=== PATIENT | female | born 1955 | race Caucasian/White ===

== ENCOUNTER → 2016-11-29 | Outpatient (CLI) | payer BC ==
[~2016-11-29] MED LIST: BACTRIM DS 8001 TA1 PO; DARVOCET N 1001 TAB PO; DAYPRO600 M1 PO; FLEXERIL10 MG PO; LISINOPRIL20 MG PO; MOTRIN800 MG PO; NKHM; NUCYNTA75 MG PO; PERCOCET 325 MG1 TA7 PO; ZOCOR20 MG PO
[2016-11-29 08:19] LABS: CHOLESTEROL 214 mg/dL (<200); HDL CHOLESTEROL 53 mg/dl (40-60); LDL CHOLESTEROL 132 mg/dL (9-159); TRIGLYCERIDES 146 mg/dl (<150); VLDL CHOLESTEROL 29 mg/dL (6-40)
== END | disposition home or self-care (01) ==
LOC: LAB 07:26
PROVIDERS: Family Medicine
DX: E53.8 Deficiency of other specified B group vitamins (principal); E78.2 Mixed hyperlipidemia; R73.03 Prediabetes

== ENCOUNTER → 2017-07-18 | Outpatient (CLI) | payer OTHER ==
[2017-07-18 08:21] LABS: BASO % 0.5 % (0.0-1.0); EOS # 0.2 10*3/uL (0.0-0.4); EOS % 2.7 % (1.0-4.0); HEMOGLOBIN 14.9 g/dl (12.0-16.0); LYMPH # 2.4 10*3/uL (1.3-4.4); LYMPH % 28.4 % (27.0-41.0); MEAN CORPUSCULAR HGB 29.8 pg (27.0-31.0); MEAN CORPUSCULAR HGB CONC 33.9 g/dl (33.0-37.0); MEAN PLATELET VOLUME 9.7 fl (9.6-12.3); MONO # 0.6 10*3/uL (0.1-1.0); MONO % 7.4 % (3.0-9.0); NEUT # 5.1 10*3/uL (2.3-7.9); NEUT % 60.8 % (47.0-73.0); PLATELET COUNT AUTOMATED 383 10*3/uL (130-400); RED CELL DISTRI WIDTH 12.8 % (0-14.5); WHITE BLOOD COUNT 8.5 10*3/uL (4.8-10.8)
[2017-07-18 08:49] LABS: ALBUMIN 4.6 gm/dl (3.1-4.5); BUN 18 mg/dl (7-24); CHLORIDE 103 mmol/L (98-107); POTASSIUM 4.5 mmol/L (3.5-5.1); SODIUM 140 mmol/L (136-145)
[2017-07-18 08:52] LABS: ALKALINE PHOSPHATASE 109 U/L (45-117); CHOLESTEROL 203 mg/dL (<200); CREATININE 0.95 mg/dL (0.55-1.02); HDL CHOLESTEROL 51 mg/dl (40-60); LDL CHOLESTEROL 124 mg/dL (9-159); SGOT/AST 18 IU/L (3-35); SGPT/ALT 21 U/L (12-78); TOTAL PROTEIN 7.6 gm/dL (6.4-8.2); TRIGLYCERIDES 140 mg/dl (<150); VLDL CHOLESTEROL 28 mg/dL (6-40)
[2017-07-18 10:45] LABS: VITAMIN D, 25-HYDROXY 22.7 ng/mL (30-100)
== END | disposition home or self-care (01) ==
LOC: LAB 07:23 → MAMMO 08:00
PROVIDERS: Family Medicine
DX: Z12.31 Encounter for screening mammogram for malignant neoplasm of breast (principal); I10 Essential (primary) hypertension; E78.2 Mixed hyperlipidemia; E55.9 Vitamin D deficiency, unspecified; R73.03 Prediabetes; E53.8 Deficiency of other specified B group vitamins

== ENCOUNTER → 2017-07-25 | Outpatient (CLI) | payer OTHER | END | disposition home or self-care (01) | LOC: MAMMO 09:00 | DX: N60.01 Solitary cyst of right breast (principal); R92.8 Other abnormal and inconclusive findings on diagnostic imaging of breast ==

== ENCOUNTER 2018-04-09 14:30 | Inpatient (IN) | payer OTHER ==
[~2018-04-09] VITALS: Ht 168 cm; Wt 67.1 kg
[2018-04-09] VITALS (7 sets, daily range): BP systolic 150–203; BP diastolic 84–123
--- NOTE | ~2018-04-09 | CON ---
[place], [place] REPORT OF CONSULTATION NAME: ELIZABETH WEBBER [facility] #: [id number] UNIT #: [id number] ROOM: [facility] DOCTOR: TYRESE REED MD BIRTHDATE: [birth year] DOS: 04/09/2018 CARDIOLOGY CONSULTATION The patient was seen. REASON FOR CONSULTATION: Chest pain, elevated troponin. HISTORY OF PRESENT ILLNESS: The patient is a 62-year-old woman who has had a history of chest pain in the past, but has never been documented as having coronary artery disease. She was evaluated in 01/2015 and ruled out for myocardial infarction. A stress myocardial perfusion study on 02/15/2015 showed an ejection fraction of 62% with normal perfusion. The patient was in her normal state of health until 4 days ago. She began having episodes of burning substernal chest pain with exertion that was relieved by rest. These episodes would last 10-15 minutes. 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 It was associated with diaphoresis and slight dyspnea. She also had a squeezing sensation in her chest. She came to the Emergency Room by private vehicle and was still having chest pain on admission. An electrocardiogram obtained immediately showed sinus tachycardia with a rate of 106 with 1.[address] segment depression in the inferior and lateral leads. She was given metoprolol and aspirin. Her rate decreased to [address] changes improved dramatically. Her initial troponin was elevated at 0.958 and the subsequent troponin level was 1.240. A diagnosis of non-ST elevation myocardial infarction was made and she was admitted to the Intensive Care Unit. She is currently feeling well. She denies dyspnea, orthopnea, PND or any further chest pain. PAST MEDICAL AND SURGICAL HISTORY: Includes the followin. Hyperlipidemia. 2. Hypertension. 3. Status post carpal tunnel repair. 4. Left elbow repair. 5. Chest pain prompting stress test 02/15/2015, ejection fraction 62%, no ischemia, low risk study. MEDICATIONS PRIOR TO ADMISSION: Hydrochlorothiazide 25 mg once a day and simvastatin 20 mg at bedtime. ALLERGIES: THE PATIENT LISTS ALLERGIES TO PENICILLINS. She specifically denies any allergies to IVP dye. FAMILY HISTORY: The patient's father has hypertension and had a myocardial infarction in his 80s. Her mother of cancer. REVIEW OF SYSTEMS: The patient denies diplopia or loss of vision. She denies lightheadedness or syncope. She denies fevers, chills, sweats or recent weight change. Denies any focal weakness. She has not had any nausea, but she has had [place], [place] REPORT OF CONSULTATION NAME: ELIZABETH WEBBER UNIT #: [id number] ROOM: [facility] DOCTOR: TYRESE REED MD BIRTHDATE: [birth year] burning substernal chest pain. She denies vomiting. She denies hemoptysis or hematemesis. She denies palpitations or syncope. She denies orthopnea or PND. She denies any peripheral edema. She denies heat or cold intolerance and denies polyuria or polydipsia. Remainder of the review of systems is negative except as noted above. SOCIAL HISTORY: The patient is . She does smoke one-half pack of cigarettes a day, but is "trying to quit." She is not consuming excessive amounts of alcohol. PHYSICAL EXAMINATION: GENERAL: The patient is a well-nourished white female who is awake, alert and oriented. VITAL SIGNS: Pulse is 79 and regular, blood pressure is 170/84. She is afebrile. She weighs 67.1 kg and has a body mass index of 23.8. HEENT: Normocephalic and atraumatic. Extraocular muscles are intact. Sclerae are clear. Pupils are equal, round and react to light. The oral mucosa is moist. Tongue is midline. NECK: Supple. She has no jugular distention. Carotids are full. There are no bruits. She has no neck or supraclavicular masses, no thyromegaly. LUNGS: Respirations are unlabored. Her chest is clear to auscultation and percussion. She has no presacral edema or chest wall tenderness. HEART: Has a regular rhythm. She has a fourth heart sound, but no third heart sound or murmur. The PMI is not displaced. There is no precordial heave, lift or thrill. ABDOMEN: Soft and normally active without masses, organomegaly or bruits. EXTREMITIES: Showed no clubbing, cyanosis or edema. Peripheral pulses are diminished, but palpable in the feet. DIAGNOSTIC STUDIES: I reviewed her electrocardiograms. The initial cardiogram did show 1.[address] segment depression in the inferior and lateral leads, which improved on repeat. LABORATORY DATA: Hemoglobin is 13.4, hematocrit 39.3. There are 7600 white cells, 318,000 platelets. PT is 10.2 with an INR of 0.9. Sodium is 140, potassium 3.6, chloride 106, CO2 is 26, BUN 21, creatinine 0.89. Peak troponin thus far is 1.240. IMPRESSION: 1. Non-ST segment elevation myocardial infarction. The patient's troponin level continues to rise at this time indicating that the event was recent. 2. Hypertension. 3. Hyperlipidemia. 4. Cigarette abuse. PLAN: Given the patient's age and multiple episodes of chest pain in the last 4 days, I think that an aggressive approach with catheterization at this time is appropriate. I have discussed catheterization including the risk of heart attack, stroke, , bleeding, bruising, dye reaction, irregular heartbeats, infections, etc. with the patient and her family was in attendance. She agrees [place], [place] REPORT OF CONSULTATION NAME: ELIZABETH WEBBER UNIT #: [id number] ROOM: [facility] DOCTOR: TYRESE REED MD BIRTHDATE: [birth year] to proceed. According to the society for angiography and interventions, her indication is 3 with a score of 8. We will arrange for transfer to [facility] within the next 24 hours for catheterization and potential revascularization. I thank the hospitalist physicians for asking our advice regarding her care. TYRESE REED MD CM:CONSTR:REPORT OF CONSULTATION 10 04/10/18 1746 interface
--- NOTE | ~2018-04-09 | EKG ---
[place], [place] ELECTROCARDIOGRAM REPORT NAME: ELIZABETH WEBBER UNIT #: [id number] ROOM: [facility] DOCTOR: NONI DRAFT REPORT BIRTHDATE: [birth year] [facility] Test Date: 2018-04-09 Test Time: 14:35:07 Pat Name: ELIZABETH WEBBER Department: Room: [facility] Gender: F [employer] Supervisor: Amanda Fong : 1955 Requested By: DARRYL GONZALEZ Order Number: [id number] Reading MD: Alexis Quispe MD Measurements Intervals [place] Rate: 106 P: 74 NH: 156 QRS: 41 QRSD: 92 T: 24 QT: 334 QTc: 445 Interpretive Statements Sinus tachycardia ST depression, anterolateral leads, consider acute ischemia No previous ECG available for comparison Electronically Signed On 04-09-2018 18:47:37 PDT by Alexis Quispe MD CM:EKGRPT:ELECTROCARDIOGRAM REPORT [id number] DARRYL CHENEY DRAFT REPORT DARRYL GONZALEZ M.D.
--- NOTE | ~2018-04-09 | EKG ---
[place], [place] ELECTROCARDIOGRAM REPORT NAME: ELIZABETH WEBBER UNIT #: [id number] ROOM: [facility] DOCTOR: NONI DRAFT REPORT BIRTHDATE: [birth year] [facility] Test Date: 2018-04-09 Test Time: 17:58:29 Pat Name: ELIZABETH WEBBER Department: Room: [facility] Gender: F [employer] Chair: Amanda Fong : 1955 Requested By: DARRYL GONZALEZ Order Number: [id number] Reading MD: Alexis Quispe MD Measurements Intervals [place] Rate: 81 P: 33 AR: 153 QRS: 28 QRSD: 85 T: 19 QT: 384 QTc: 446 Interpretive Statements Sinus rhythm Baseline wander in lead(s) V6 Compared to previous tracing this date Heart rate is slower Anterolateral ST depression is no longer present Electronically Signed On 04-09-2018 18:53:46 PDT by Alexis Quispe MD CM:EKGRPT:ELECTROCARDIOGRAM REPORT 1853 DARRYL CHENEY DRAFT REPORT DARRYL GONZALEZ M.D.
--- NOTE | ~2018-04-09 | EKG ---
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 Electronically Signed On 04-09-2018 18:55:08 PDT by Alexis Quipse MD CM:EKGRPT:ELECTROCARDIOGRAM REPORT [id number] DARRYL CHENEY DRAFT REPORT DARRYL GONZALEZ M.D.
[2018-04-09 15:28] LABS: BASO # 0.1 10*3/uL (0.0-0.1); BASO % 0.9 % (0.0-1.0); EOS # 0.3 10*3/uL (0.0-0.4); EOS % 3.4 % (1.0-4.0); HEMATOCRIT 39.3 % (37.0-47.0); HEMOGLOBIN 13.4 g/dl (12.0-16.0); LYMPH # 2.3 10*3/uL (1.3-4.4); MEAN CELL VOLUME 88.9 fl (81.0-99.0); MEAN CORPUSCULAR HGB 30.3 pg (27.0-31.0); MEAN CORPUSCULAR HGB CONC 34.1 g/dl (33.0-37.0); MEAN PLATELET VOLUME 9.4 fl (9.6-12.3); MONO # 0.6 10*3/uL (0.1-1.0); MONO % 8.5 % (3.0-9.0); NEUT # 4.2 10*3/uL (2.3-7.9); NEUT % 55.9 % (47.0-73.0); PLATELET COUNT AUTOMATED 318 10*3/uL (130-400); RED BLOOD COUNT 4.42 10*6/uL (4.10-5.10); RED CELL DISTRI WIDTH 12.8 % (0-14.5); WHITE BLOOD COUNT 7.6 10*3/uL (4.8-10.8)
[2018-04-09 15:36] LABS: ACT PARTIAL THROMBO TIME 26.1 SECONDS (20.8-31.5); INTERNATIONAL NORM RATIO 0.9 (2.0-3.5)
[2018-04-09 15:46] LABS: ALKALINE PHOSPHATASE 106 U/L (45-117); BUN 21 mg/dl (7-24); CHLORIDE 106 mmol/L (98-107); CREATININE 0.89 mg/dL (0.55-1.02); POTASSIUM 3.6 mmol/L (3.5-5.1); SGOT/AST 25 IU/L (3-35); SGPT/ALT 25 U/L (12-78); SODIUM 140 mmol/L (136-145); TOTAL PROTEIN 7.2 gm/dL (6.4-8.2)
[2018-04-09 15:51] LABS: TROPONIN I 0.958 ng/ml (<0.045)
[2018-04-09] MEDS ORDERED: HYDR25T PO (17:19)
[2018-04-10] VITALS: BP 140/82
[2018-04-10 04:00] VITALS: BP 138/77
[2018-04-10 05:55] LABS: ALBUMIN 3.5 gm/dl (3.1-4.5); ALKALINE PHOSPHATASE 97 U/L (45-117); BUN 16 mg/dl (7-24); CHLORIDE 108 mmol/L (98-107); CHOLESTEROL 183 mg/dL (<200); CREATININE 0.88 mg/dL (0.55-1.02); FREE T4 1.08 ng/dl (0.76-1.46); HDL CHOLESTEROL 42 mg/dl (40-60); LDL CHOLESTEROL 102 mg/dL (9-159); PHOSPHOROUS 3.7 mg/dL (2.5-4.9); POTASSIUM 3.9 mmol/L (3.5-5.1); SGOT/AST 25 IU/L (3-35); SGPT/ALT 25 U/L (12-78); SODIUM 143 mmol/L (136-145); TRIGLYCERIDES 197 mg/dl (<150); VLDL CHOLESTEROL 39 mg/dL (6-40)
[2018-04-10 06:02] LABS: BASO # 0.1 10*3/uL (0.0-0.1); BASO % 0.9 % (0.0-1.0); EOS # 0.3 10*3/uL (0.0-0.4); EOS % 4.2 % (1.0-4.0); HEMATOCRIT 41.5 % (37.0-47.0); HEMOGLOBIN 13.8 g/dl (12.0-16.0); LYMPH # 2.4 10*3/uL (1.3-4.4); LYMPH % 37.5 % (27.0-41.0); MEAN CELL VOLUME 90.4 fl (81.0-99.0); MEAN CORPUSCULAR HGB 30.1 pg (27.0-31.0); MEAN CORPUSCULAR HGB CONC 33.3 g/dl (33.0-37.0); MEAN PLATELET VOLUME 9.7 fl (9.6-12.3); MONO # 0.6 10*3/uL (0.1-1.0); MONO % 9.9 % (3.0-9.0); NEUT % 47.2 % (47.0-73.0); PLATELET COUNT AUTOMATED 338 10*3/uL (130-400); RED BLOOD COUNT 4.59 10*6/uL (4.10-5.10); RED CELL DISTRI WIDTH 12.8 % (0-14.5); WHITE BLOOD COUNT 6.5 10*3/uL (4.8-10.8)
[2018-04-10 06:17] LABS: ACT PARTIAL THROMBO TIME 27.7 SECONDS (20.8-31.5)
== END 2018-04-10 07:00 | disposition other institution (70) | DRG 282 ==
LOC: ED 14:30 → EDHOLD 16:22 → ICCU 16:22
PROVIDERS: Emergency Medicine; Internal Medicine
DX: I21.4 Non-ST elevation (NSTEMI) myocardial infarction (principal); I10 Essential (primary) hypertension; F17.210 Nicotine dependence, cigarettes, uncomplicated; E78.5 Hyperlipidemia, unspecified; K21.9 Gastro-esophageal reflux disease without esophagitis; E83.41 Hypermagnesemia; R73.9 Hyperglycemia, unspecified; H81.02 Meniere's disease, left ear; Z88.0 Allergy status to penicillin; Z79.899 Other long term (current) drug therapy; Z82.49 Family history of ischemic heart disease and other diseases of the circulatory system; Z80.41 Family history of malignant neoplasm of ovary; Z71.6 Tobacco abuse counseling; Z91.041 Radiographic dye allergy status

== ENCOUNTER → 2018-08-13 | Outpatient (CLI) | payer OTHER ==
[~2018-08-13] MED LIST changes: +HYDR25T PO
== END | disposition home or self-care (01) ==
LOC: RAD 11:18
DX: J43.9 Emphysema, unspecified (principal); I10 Essential (primary) hypertension; I25.10 Atherosclerotic heart disease of native coronary artery without angina pectoris

== ENCOUNTER → 2018-10-17 | Outpatient (CLI) | payer OTHER | END | disposition home or self-care (01) | LOC: CARD 12:41 | DX: R06.09 Other forms of dyspnea (principal) ==

== ENCOUNTER → 2019-04-14 | Outpatient (CLI) | payer OTHER | END | disposition home or self-care (01) | LOC: RAD 10:39 | DX: R05 Cough (principal); I10 Essential (primary) hypertension; J44.9 Chronic obstructive pulmonary disease, unspecified; Z87.891 Personal history of nicotine dependence ==

== ENCOUNTER → 2019-05-07 | Outpatient (CLI) | payer OTHER ==
--- NOTE | ~2019-05-07 | PF ---
[place], [place] PULMONARY FUNCTION TEST [id number] UN[facility] #: [id number] ROOM: DOCTOR: KEY OSORIO MD,LIZ BIRTHDATE: [birth year] DOS: 05/07/2019 The test was ordered by Mack Marques. HISTORY: The patient recorded as a 63-year-old female patient with height of 66 inches, weight of 145 pounds, BMI of 23.4. Testing was done for the patient's assessment of symptoms of chronic cough. Tobacco use reported a pack of cigarettes per day for 46 years, this was discontinued one year ago. SPIROMETRY: The FVC 2.29 liters, 69% predicted value with 13% postbronchodilator improvement. FEV1 1.64 liters, 63% predicted value, moderately decreased without significant partial improvement postbronchodilator. Ratio of FEV1/FVC postbronchodilator recorded as 69%. Flow volume loop was suggestive of obstructive lung disease. LUNG VOLUME: Thoracic gas volume recorded 98%, residual volume of 122%, total lung capacity 90%. RV/TLC ratio 134%. The patient's airway resistance, passive conductance noted abnormal with improvement after bronchodilators. The patient's lung diffusion recorded 48%. FINAL IMPRESSION: Current test was noted mixed disorder of moderate chronic obstructive pulmonary disease and bronchial asthma combination. Clinical correlation would be advised. LIZ MACKEY MD CM:PFREPORT:PULMONARY FUNCTION TEST [id number] LIZ OSORIO MD
== END | disposition home or self-care (01) ==
LOC: CP 05-06 08:02
DX: I10 Essential (primary) hypertension (principal); R05 Cough

== ENCOUNTER → 2019-06-17 | Outpatient (CLI) | payer OTHER ==
[2019-06-17 10:14] LABS: BUN 16 mg/dl (7-24); CHLORIDE 111 mmol/L (98-107); CREATININE 0.98 mg/dL (0.55-1.02); POTASSIUM 4.4 mmol/L (3.5-5.1); SODIUM 143 mmol/L (136-145)
== END | disposition home or self-care (01) ==
LOC: LAB 09:22
PROVIDERS: Internal Medicine Cardiovascular Disease
DX: I25.10 Atherosclerotic heart disease of native coronary artery without angina pectoris (principal)

== ENCOUNTER 2019-08-17 13:30 | Emergency (ER) | payer OTHER ==
[~2019-08-17] VITALS: Ht 167.6 cm; Wt 68.0 kg
[2019-08-17 14:40] LABS: BASO # 0.1 10*3/uL (0.0-0.1); BASO % 1.3 % (0.0-1.0); EOS # 0.4 10*3/uL (0.0-0.4); EOS % 8.2 % (1.0-4.0); HEMATOCRIT 38.8 % (37.0-47.0); HEMOGLOBIN 12.7 g/dl (12.0-16.0); LYMPH % 19.1 % (27.0-41.0); MEAN CELL VOLUME 89.8 fl (81.0-99.0); MEAN CORPUSCULAR HGB 29.4 pg (27.0-31.0); MEAN CORPUSCULAR HGB CONC 32.7 g/dl (33.0-37.0); MEAN PLATELET VOLUME 9.4 fl (9.6-12.3); MONO # 0.6 10*3/uL (0.1-1.0); MONO % 11.7 % (3.0-9.0); NEUT # 3.2 10*3/uL (2.3-7.9); NEUT % 59.5 % (47.0-73.0); PLATELET COUNT AUTOMATED 314 10*3/uL (130-400); RED BLOOD COUNT 4.32 10*6/uL (4.10-5.10); RED CELL DISTRI WIDTH 12.6 % (0-14.5); WHITE BLOOD COUNT 5.4 10*3/uL (4.8-10.8)
[2019-08-17 14:55] LABS: ALBUMIN 3.5 gm/dl (3.1-4.5); ALKALINE PHOSPHATASE 144 U/L (45-117); BUN 23 mg/dl (7-24); CHLORIDE 106 mmol/L (98-107); CREATININE 0.97 mg/dL (0.55-1.02); LIPASE 93 U/L (73-393); POTASSIUM 3.5 mmol/L (3.5-5.1); SGOT/AST 19 IU/L (3-35); SGPT/ALT 27 U/L (12-78); SODIUM 139 mmol/L (136-145)
[2019-08-17 15:13] VITALS: BP 116/70
[2019-08-17] MEDS ORDERED: SEPTDS PO (15:27)
== END 2019-08-17 15:39 | disposition home or self-care (01) ==
LOC: ED 13:30
PROVIDERS: Nurse Practitioner Family
DX: J32.9 Chronic sinusitis, unspecified (principal); K21.9 Gastro-esophageal reflux disease without esophagitis; I10 Essential (primary) hypertension; E78.5 Hyperlipidemia, unspecified; E78.00 Pure hypercholesterolemia, unspecified; Z88.0 Allergy status to penicillin; Z79.899 Other long term (current) drug therapy

== ENCOUNTER → 2019-09-10 | Outpatient (CLI) | payer OTHER ==
[~2019-09-10] MED LIST changes: +ASPIR 8181 MG PO; +ATORVASTATIN CA80 M1 PO; +COZAAR25 M1 PO; +PRILOSEC20 M1 PO; +PROAIR HFA8.5 GM INH; +SEPTDS PO; +TOPROL XL25 MG PO
--- NOTE | 2019-09-10 10:30 | NUR ---
INFORMED CONSENT OBTAINED FOR EXERCISE CARDIOLITE STRESS TEST WITH DR. CARTY. RESTING EKG NSR WITH A SUPINE HR OF 63 WITH BP OF 162/48 AND HR OF 65 WITH BP OF 138/80 IN STANDING POSITION. PT COMPLETED 7:00 OF A ERASMO PROTOCOL WITH COMPLETION OF 1:00 OF STAGE III AT 3.4 MPH AND 14% GRADE. REACHED A PEAK HR OF 150 WHICH IS 96% OF PREDICTED MAX WITH A PEAK BP OF 170/80. HAD NO CHEST PAIN OR ANY EKG CHANGES. TEST TERMINATED BECAUSE OF FATIGUE. HAS A GOOD EXERCISE TOLERANCE. LAST RECOVERY HR OF 91 WITH BP OF 128/84. AWAITING SCANNING IN STABLE CONDITION.
== END | disposition home or self-care (01) ==
LOC: CARD 00:14
DX: R73.03 Prediabetes (principal); R07.9 Chest pain, unspecified

== ENCOUNTER 2019-09-25 07:49 | Inpatient (IN) | payer OTHER ==
[~2019-09-25] VITALS: Ht 167.6 cm; Wt 69.9 kg
[2019-09-25 07:57] VITALS: BP 122/71
[2019-09-25 08:44] VITALS: BP 136/78
[2019-09-25 08:44] LABS: BASO # 0.1 10*3/uL (0.0-0.1); BASO % 1.2 % (0.0-1.0); EOS # 0.3 10*3/uL (0.0-0.4); EOS % 3.3 % (1.0-4.0); HEMOGLOBIN 13.9 g/dl (12.0-16.0); LYMPH # 2.1 10*3/uL (1.3-4.4); LYMPH % 28.1 % (27.0-41.0); MEAN CELL VOLUME 89.8 fl (81.0-99.0); MEAN CORPUSCULAR HGB CONC 32.3 g/dl (33.0-37.0); MEAN PLATELET VOLUME 9.6 fl (9.6-12.3); MONO # 0.6 10*3/uL (0.1-1.0); MONO % 8.3 % (3.0-9.0); NEUT # 4.5 10*3/uL (2.3-7.9); NEUT % 58.8 % (47.0-73.0); PLATELET COUNT AUTOMATED 366 10*3/uL (130-400); RED BLOOD COUNT 4.79 10*6/uL (4.10-5.10); RED CELL DISTRI WIDTH 12.9 % (0-14.5); WHITE BLOOD COUNT 7.6 10*3/uL (4.8-10.8)
[2019-09-25 08:54] LABS: ACT PARTIAL THROMBO TIME 25.5 SECONDS (20.0-32.1)
[2019-09-25 08:59] LABS: ALBUMIN 3.8 gm/dl (3.1-4.5); ALKALINE PHOSPHATASE 154 U/L (45-117); BUN 20 mg/dl (7-24); CHLORIDE 107 mmol/L (98-107); LIPASE 93 U/L (73-393); POTASSIUM 4.3 mmol/L (3.5-5.1); SGOT/AST 19 IU/L (3-35); SGPT/ALT 32 U/L (12-78); SODIUM 140 mmol/L (136-145); TOTAL PROTEIN 7.8 gm/dL (6.4-8.2); TROPONIN I 0.015 ng/ml (<0.045)
[2019-09-25 10:52] VITALS: BP 170/84
[2019-09-25 12:00] VITALS: BP 148/88
[2019-09-25 16:00] VITALS: BP 151/79
[2019-09-25 20:00] VITALS: BP 141/76
[2019-09-26] VITALS: BP 126/73
[2019-09-26 06:29] LABS: BASO # 0.1 10*3/uL (0.0-0.1); BASO % 1.5 % (0.0-1.0); EOS # 0.2 10*3/uL (0.0-0.4); EOS % 2.6 % (1.0-4.0); HEMATOCRIT 38.8 % (37.0-47.0); HEMOGLOBIN 12.6 g/dl (12.0-16.0); LYMPH # 1.9 10*3/uL (1.3-4.4); LYMPH % 30.2 % (27.0-41.0); MEAN CELL VOLUME 88.6 fl (81.0-99.0); MEAN CORPUSCULAR HGB 28.8 pg (27.0-31.0); MEAN CORPUSCULAR HGB CONC 32.5 g/dl (33.0-37.0); MEAN PLATELET VOLUME 9.5 fl (9.6-12.3); MONO # 0.5 10*3/uL (0.1-1.0); MONO % 7.7 % (3.0-9.0); NEUT # 3.6 10*3/uL (2.3-7.9); NEUT % 57.8 % (47.0-73.0); PLATELET COUNT AUTOMATED 353 10*3/uL (130-400); RED BLOOD COUNT 4.38 10*6/uL (4.10-5.10); RED CELL DISTRI WIDTH 13.2 % (0-14.5); WHITE BLOOD COUNT 6.1 10*3/uL (4.8-10.8)
[2019-09-26 07:03] LABS: BUN 17 mg/dl (7-24); CHLORIDE 107 mmol/L (98-107); CHOLESTEROL 138 mg/dL (<200); CREATININE 0.93 mg/dL (0.55-1.02); FREE T4 1.25 ng/dl (0.76-1.46); HDL CHOLESTEROL 47 mg/dl (40-60); LDL CHOLESTEROL 74 mg/dL (9-159); PHOSPHOROUS 4.2 mg/dL (2.5-4.9); POTASSIUM 4.1 mmol/L (3.5-5.1); SODIUM 140 mmol/L (136-145); TRIGLYCERIDES 85 mg/dl (<150); VLDL CHOLESTEROL 17 mg/dL (6-40)
[2019-09-26 07:06] LABS: ACT PARTIAL THROMBO TIME 26.1 SECONDS (20.0-32.1)
[2019-09-26 07:57] LABS: VITAMIN D, 25-HYDROXY 23.7 ng/mL (30-100)
[2019-09-26 08:00] VITALS: BP 116/74
[2019-09-26 12:00] VITALS: BP 100/56
[2019-09-26] MEDS ORDERED: LOSARTAN POTASS50 M1 PO (14:34)
== END 2019-09-26 15:34 | disposition home or self-care (01) | DRG 69 ==
LOC: ED 07:49 → EDHOLD 10:16 → 4E 10:16
PROVIDERS: Emergency Medicine; Internal Medicine; ADMIT Family Medicine
DX: G45.9 Transient cerebral ischemic attack, unspecified (principal); R47.01 Aphasia; N18.3 Chronic kidney disease, stage 3 (moderate); E83.41 Hypermagnesemia; R74.8 Abnormal levels of other serum enzymes; K21.9 Gastro-esophageal reflux disease without esophagitis; E78.5 Hyperlipidemia, unspecified; J44.9 Chronic obstructive pulmonary disease, unspecified; R79.82 Elevated C-reactive protein (CRP); I12.9 Hypertensive chronic kidney disease with stage 1 through stage 4 chronic kidney disease, or unspecified chronic kidney disease; I25.2 Old myocardial infarction; Z87.891 Personal history of nicotine dependence; Z88.0 Allergy status to penicillin; Z79.82 Long term (current) use of aspirin; Z79.899 Other long term (current) drug therapy

== ENCOUNTER → 2019-10-01 | Outpatient (CLI) | payer OTHER ==
[~2019-10-01] MED LIST changes: +LOSARTAN POTASS50 M1 PO
== END | disposition home or self-care (01) ==
LOC: MRI 08:42
DX: G45.9 Transient cerebral ischemic attack, unspecified (principal); I63.9 Cerebral infarction, unspecified

== ENCOUNTER → 2020-05-10 | Outpatient (CLI) | payer BC | END | disposition home or self-care (01) | LOC: RAD 16:33 | PROVIDERS: ATTEND Internal Medicine Critical Care Medicine | DX: J44.9 Chronic obstructive pulmonary disease, unspecified (principal); R05 Cough; Z95.5 Presence of coronary angioplasty implant and graft ==

== ENCOUNTER → 2020-05-17 | Outpatient (CLI) | payer BC | END | disposition home or self-care (01) | LOC: COVID19 15:19 | PROVIDERS: ATTEND Physician Assistant | DX: Z20.828 Contact with and (suspected) exposure to other viral communicable diseases (principal) ==

== ENCOUNTER → 2020-09-09 | Outpatient (CLI) | payer BC ==
[2020-09-09 15:29] LABS: BASO # 0.1 10*3/uL (0.0-0.1); BASO % 1.3 % (0.0-1.0); EOS # 0.5 10*3/uL (0.0-0.4); EOS % 7.6 % (1.0-4.0); HEMATOCRIT 40.6 % (37.0-47.0); LYMPH # 1.8 10*3/uL (1.3-4.4); LYMPH % 28.6 % (27.0-41.0); MEAN CORPUSCULAR HGB 28.1 pg (27.0-31.0); MEAN CORPUSCULAR HGB CONC 31.5 g/dl (33.0-37.0); MONO # 0.8 10*3/uL (0.1-1.0); MONO % 12.5 % (3.0-9.0); NEUT # 3.1 10*3/uL (2.3-7.9); NEUT % 49.4 % (47.0-73.0); PLATELET COUNT AUTOMATED 477 10*3/uL (130-400); RED BLOOD COUNT 4.56 10*6/uL (4.10-5.10); RED CELL DISTRI WIDTH 13.2 % (0-14.5); WHITE BLOOD COUNT 6.2 10*3/uL (4.8-10.8)
[2020-09-09 16:00] LABS: ALBUMIN 3.7 gm/dl (3.1-4.5); ALKALINE PHOSPHATASE 127 U/L (45-117); BUN 16 mg/dl (7-24); CHLORIDE 106 mmol/L (98-107); CREATININE 0.95 mg/dL (0.55-1.02); POTASSIUM 4.3 mmol/L (3.5-5.1); SGOT/AST 23 IU/L (3-35); SGPT/ALT 31 U/L (12-78); SODIUM 139 mmol/L (136-145); TOTAL PROTEIN 7.9 gm/dL (6.4-8.2)
== END | disposition home or self-care (01) ==
LOC: LAB 15:03
PROVIDERS: ATTEND Internal Medicine Cardiovascular Disease
DX: I72.9 Aneurysm of unspecified site (principal)

== ENCOUNTER → 2021-11-24 | Outpatient (CLI) | payer OTHER | END | disposition home or self-care (01) | LOC: RESCLI 01:42 | PROVIDERS: ATTEND Internal Medicine | DX: I10 Essential (primary) hypertension (principal); F41.9 Anxiety disorder, unspecified; E11.69 Type 2 diabetes mellitus with other specified complication; E78.5 Hyperlipidemia, unspecified; E55.9 Vitamin D deficiency, unspecified; K21.9 Gastro-esophageal reflux disease without esophagitis; J44.9 Chronic obstructive pulmonary disease, unspecified; Z86.73 Personal history of transient ischemic attack (TIA), and cerebral infarction without residual deficits; G47.00 Insomnia, unspecified; Z79.899 Other long term (current) drug therapy; Z79.82 Long term (current) use of aspirin; Z88.0 Allergy status to penicillin; Z88.8 Allergy status to other drugs, medicaments and biological substances ==

== ENCOUNTER → 2022-05-13 | Outpatient (CLI) | payer OTHER ==
[2022-05-13 09:27] LABS: BUN 26 mg/dl (7-24); CHLORIDE 108 mmol/L (98-107); CREATININE 0.87 mg/dL (0.55-1.02); POTASSIUM 4.2 mmol/L (3.5-5.1); SODIUM 142 mmol/L (136-145)
== END | disposition home or self-care (01) ==
LOC: LAB 08:07
PROVIDERS: ATTEND Surgery Vascular Surgery
DX: I65.23 Occlusion and stenosis of bilateral carotid arteries (principal)

== ENCOUNTER → 2022-10-19 | Outpatient (CLI) | payer OTHER ==
[~2022-10-19] MED LIST changes: +ANORO ELLIPTA1 EACH PO; +ATORVASTATIN CA40 M1 PO; -ATORVASTATIN CA80 M1 PO; +ELIQUIS5 M1 PO; +FLOVENT HFA10.6 GM PO; +GLUMETZA500 MG PO; +IMDUR SA30 MG PO; +MAGNESIUM400 M1 PO; +VENLAFAXINE75 M1 PO
== END | disposition home or self-care (01) ==
LOC: CARD 00:19
PROVIDERS: ATTEND Internal Medicine Cardiovascular Disease
DX: I25.750 Atherosclerosis of native coronary artery of transplanted heart with unstable angina (principal); Z95.1 Presence of aortocoronary bypass graft

== ENCOUNTER → 2023-01-23 | Outpatient (CLI) | payer OTHER | END | disposition home or self-care (01) | LOC: RESCLI 00:42 | PROVIDERS: ATTEND Student in an Organized Health Care Education/Training Program | DX: E11.69 Type 2 diabetes mellitus with other specified complication (principal); E56.9 Vitamin deficiency, unspecified; I10 Essential (primary) hypertension; E55.9 Vitamin D deficiency, unspecified; G47.00 Insomnia, unspecified; E78.5 Hyperlipidemia, unspecified; K21.9 Gastro-esophageal reflux disease without esophagitis; J44.9 Chronic obstructive pulmonary disease, unspecified; F41.9 Anxiety disorder, unspecified; Z86.73 Personal history of transient ischemic attack (TIA), and cerebral infarction without residual deficits; Z98.890 Other specified postprocedural states; Z88.0 Allergy status to penicillin; Z82.49 Family history of ischemic heart disease and other diseases of the circulatory system; Z79.899 Other long term (current) drug therapy ==

== ENCOUNTER → 2023-02-19 | Outpatient (CLI) | payer OTHER | END | disposition home or self-care (01) | LOC: CARD 01:16 | PROVIDERS: ATTEND Internal Medicine Cardiovascular Disease | DX: I34.81 Nonrheumatic mitral (valve) annulus calcification (principal); R06.09 Other forms of dyspnea ==

== ENCOUNTER → 2023-04-12 | Outpatient (CLI) | payer OTHER ==
[2023-04-12 08:21] LABS: BUN 15 mg/dl (9-23); CHLORIDE 108 mmol/L (98-107); POTASSIUM 4.7 mmol/L (3.4-5.1)
[2023-04-12 08:23] LABS: CHOLESTEROL 119 mg/dL (<200); LDL CHOLESTEROL 46 mg/dL (9-159); TRIGLYCERIDES 119 mg/dl (<150)
== END | disposition home or self-care (01) ==
LOC: LAB 07:36
PROVIDERS: Nurse Practitioner Family; ATTEND Surgery Vascular Surgery
DX: I71.43 Infrarenal abdominal aortic aneurysm, without rupture (principal); E78.5 Hyperlipidemia, unspecified; Z79.899 Other long term (current) drug therapy

== ENCOUNTER 2023-07-25 14:03 | Emergency (ER) | payer OTHER ==
[~2023-07-25] VITALS: Ht 162.5 cm; Wt 72.6 kg
[2023-07-25 14:16] VITALS: BP 110/88
[2023-07-25 14:35] LABS: BASO # 0.1 10*3/uL (0.0-0.1); BASO % 1.4 % (0.0-1.0); EOS # 0.4 10*3/uL (0.0-0.4); EOS % 6.3 % (1.0-4.0); HEMATOCRIT 38.9 % (37.0-47.0); LYMPH # 1.9 10*3/uL (1.3-4.4); LYMPH % 32.6 % (27.0-41.0); MEAN CELL VOLUME 88.4 fl (81.0-99.0); MEAN CORPUSCULAR HGB CONC 31.6 g/dl (33.0-37.0); MEAN PLATELET VOLUME 9.2 fl (9.6-12.3); MONO # 0.5 10*3/uL (0.1-1.0); MONO % 9.5 % (3.0-9.0); NEUT # 2.8 10*3/uL (2.3-7.9); NEUT % 49.8 % (47.0-73.0); PLATELET COUNT AUTOMATED 300 10*3/uL (130-400); RED CELL DISTRI WIDTH 12.3 % (0-14.5); WHITE BLOOD COUNT 5.7 10*3/uL (4.8-10.8)
[2023-07-25 14:52] LABS: ACT PARTIAL THROMBO TIME 31.5 SECONDS (20.0-32.1)
[2023-07-25 15:00] LABS: ALKALINE PHOSPHATASE 103 U/L (46-116); BUN 19 mg/dl (9-23); CHLORIDE 107 mmol/L (98-107); POTASSIUM 4.3 mmol/L (3.4-5.1); SGPT/ALT 22 U/L (5-49)
== END 2023-07-25 18:42 | disposition home or self-care (01) ==
LOC: ED 14:03
PROVIDERS: Nurse Practitioner Family
DX: I71.40 Abdominal aortic aneurysm, without rupture, unspecified (principal); K21.9 Gastro-esophageal reflux disease without esophagitis; J44.9 Chronic obstructive pulmonary disease, unspecified; E78.5 Hyperlipidemia, unspecified; I12.9 Hypertensive chronic kidney disease with stage 1 through stage 4 chronic kidney disease, or unspecified chronic kidney disease; N18.30 Chronic kidney disease, stage 3 unspecified; Z86.73 Personal history of transient ischemic attack (TIA), and cerebral infarction without residual deficits; E83.41 Hypermagnesemia; I10 Essential (primary) hypertension; I25.2 Old myocardial infarction; E78.00 Pure hypercholesterolemia, unspecified; M10.9 Gout, unspecified; Z88.0 Allergy status to penicillin; Z98.890 Other specified postprocedural states; Z87.891 Personal history of nicotine dependence

== ENCOUNTER → 2024-03-13 | Outpatient (CLI) | payer OTHER | END | disposition home or self-care (01) | LOC: RESCLI 03:38 | PROVIDERS: ATTEND Student in an Organized Health Care Education/Training Program | DX: J44.9 Chronic obstructive pulmonary disease, unspecified (principal); I25.750 Atherosclerosis of native coronary artery of transplanted heart with unstable angina; I65.29 Occlusion and stenosis of unspecified carotid artery; E78.5 Hyperlipidemia, unspecified; I63.9 Cerebral infarction, unspecified; E55.9 Vitamin D deficiency, unspecified; E11.69 Type 2 diabetes mellitus with other specified complication; I10 Essential (primary) hypertension; F41.9 Anxiety disorder, unspecified; E56.9 Vitamin deficiency, unspecified; M46.1 Sacroiliitis, not elsewhere classified; Z88.0 Allergy status to penicillin; Z88.8 Allergy status to other drugs, medicaments and biological substances; Z87.891 Personal history of nicotine dependence; Z98.890 Other specified postprocedural states; Z82.49 Family history of ischemic heart disease and other diseases of the circulatory system; Z79.84 Long term (current) use of oral hypoglycemic drugs; Z79.899 Other long term (current) drug therapy ==